=== PATIENT | female | born 2005 | race Caucasian/White ===

== ENCOUNTER 2023-05-20 09:28 | Inpatient (IN) ==
[2023-05-20] MEDS ORDERED: Promethazine INJ(RESTRICTED) 25 MG/ML 1 ml VIAL IV PRN (10:16)
[2023-05-20 10:43] LABS: Urine Creatinine Concentration 145.58 mg/dL (20.00-320.00); Urine TP Creat Ratio 0.19 mg/mg
[2023-05-20 11:07] LABS: ABS Eosinophils 0.1 10^3/uL (0.0-0.5); Eosinophil % 0.8 %; Hematocrit 32.5 % (35-45); Lymphocyte % 15.5 %; Mean Corpuscular Hemoglobin 27.8 pg (27-33); Mean Corpuscular Volume 81.7 fL (80-97); Mean Platelet Volume 7.6 fL (7.5-11.2); Platelet Count 378 10^3/uL (150-450); Red Blood Count 3.97 10^6/uL (3.63-4.92); Red Cell Distribution Width 13.8 % (12-17); White Blood Count 13.2 10^3/uL (3.8-11.8)
[2023-05-20] MEDS: Buffered Lidocaine 1% SYRIN 1 ml INTRADERM ONE (11:33)
[2023-05-20] MEDS: miSOPROStol 100 mcg TAB VAGINAL ONE (11:35)
[2023-05-20 11:43] LABS: Urine Benzodiazepine Screen None Detected (None Detect); Urine Opiates Screen None Detected (None Detect)
[2023-05-20] MEDS: miSOPROStol 100 mcg TAB PO SCH (11:45)
[2023-05-20 12:06] LABS: Albumin 3.4 g/dL (3.2-5.2); Albumin/Globulin Ratio 1.3 (1-3); Calcium 8.9 mg/dL (8.6-10.3); Creatinine, Serum 0.51 mg/dL (0.51-0.95); Globulin 2.6 g/dL (2-4); Total Bilirubin 0.3 mg/dL (0.2-1.0); Uric Acid 4.3 mg/dL (2.3-6.6); eGFR CKD-EPI 137.8 (>60)
[2023-05-20] MEDS: Dinoprostone 10 MG VAG.SUPP VAGINAL ONE (21:08)
[2023-05-21] MEDS: Lactated Ringers 1000 ml BAG 1,000 ML IV ONE (09:28)
[2023-05-21] MEDS: Penicillin G Potassium IV 5,000,000 UNITS in NS 0.9% 100 ml BAG 100 ML IVPB ONE (09:45)
[2023-05-21] MEDS: Oxytocin in LR 20,000 MILLI.UNIT/1,000 ML BAG IV SCH ×2 (10:35→22:10)
[2023-05-21] MEDS: Lactated Ringers 1000 ml BAG 1,000 ML IV SCH (11:30)
[2023-05-21] MEDS: Penicillin G Potassium IV 3,000,000 UNITS in NS 0.9% 100 ml BAG 100 ML IVPB SCH (13:45)
[2023-05-21] MEDS ORDERED: ceFAZolin 2 GM in NS PREMIX 2 GM/100 ML BAG IVPB ONE (21:39)
[2023-05-21] MEDS: ceFAZolin 2 GM/50 ML BAG IV ONE (22:04)
[2023-05-21] MEDS ORDERED: Glycerin ADULT 2.4 gm SUPP PR PRN (22:07)
[2023-05-21] MEDS: Lidocaine 1% VIAL 10 MG/ML 30 ML VIAL INJ PRN (22:09)
[2023-05-21] MEDS ORDERED: Lactated Ringers 1000 ml BAG 1,000 ML IV SCH (23:00)
[2023-05-21] MEDS: Witch Hazel PAD JAR TOPICAL PRN (23:36)
[2023-05-21] MEDS: Dibucaine 1% OINT 28.35 GM TUBE PR PRN (23:36)
[2023-05-22 07:56] LABS: Hematocrit 26.4 % (35-45); Hemoglobin 8.9 g/dL (11.5-14.3); Mean Corpuscular Hemoglobin 27.7 pg (27-33); Mean Corpuscular Hgb Conc 33.9 g/dL (31-36); Mean Corpuscular Volume 81.7 fL (80-97); Mean Platelet Volume 7.6 fL (7.5-11.2); Platelet Count 319 10^3/uL (150-450); Red Blood Count 3.23 10^6/uL (3.63-4.92); Red Cell Distribution Width 14.3 % (12-17); White Blood Count 17.9 10^3/uL (3.8-11.8)
[2023-05-22 08:52] LABS: ABS Eosinophils 0.1 10^3/uL (0.0-0.5); ABS Lymphocytes 2.8 10^3/uL (1.0-4.8); ABS Monocytes 1.7 10^3/uL (0.0-0.9); ABS Neutrophils 13.3 10^3/uL (1.5-7.6); ABS Nucleated RBC 0.01 10^3/ul; Eosinophil % 0.3 %; Lymphocyte % 15.7 %
[2023-05-22] MEDS: Measles, Mumps,Rubella VACC 0.5 ML/VIAL SUBCUT ONE (09:46)
[2023-05-22] MEDS: Varicella Virus Vaccine Live 0.5 ML VIAL SUBCUT ONE (14:30)
[2023-05-22] MEDS: Lidocaine 1% VIAL 10 MG/ML 30 ML VIAL ONE (17:58)
[2023-05-23 08:11] VITALS: BP 124/69
== END 2023-05-23 17:00 | disposition home or self-care (01) | DRG 541 ==
LOC: MCHOBOUT 09:28 → MCHOB 10:06
PROVIDERS: ADMIT Registered Nurse; ATTEND Midwife